=== PATIENT | female | born 1935 | race Caucasian/White ===

== ENCOUNTER 2020-09-04 06:15 | Inpatient (IN) ==
[2020-09-04] MEDS ORDERED: 0.9 % SODIUM CHLORIDE 1,000 ML IV ONE (07:07)
[2020-09-04] MEDS ORDERED: cefTRIAXone 1 GM VIAL IV ONE (07:42)
[2020-09-04 08:03] LABS: Hematocrit 42.4 % (36.0-48.0); Hemoglobin 13.5 g/dL (12.0-15.0); Mean Cell Volume 93.8 fL (80.0-100.0); Mean Corpuscular HGB Conc 31.8 g/dL (31.0-36.0); Mean Platelet Volume 9.5 fL (7.4-10.4); Platelet Count 191 K/mcL (140-440); RBC 4.52 M/mcL (4.00-5.20); Red Cell Distribution Width 12.4 % (11.5-14.5); WBC 1.9 K/mcL (4.5-11.0)
[2020-09-04 08:27] LABS: ALT/SGPT 6 U/L (<40); AST/SGOT 14 U/L (<32); Albumin 3.9 gm/dL (3.2-5.2); Albumin/Globulin Ratio 1.2 (1.0-2.3); Alkaline Phosphatase 105 U/L (39-117); Bilirubin,Total 0.6 mg/dL (0.1-1.0); Blood Urea Nitrogen 22 mg/dL (8-23); Calcium 9.9 mg/dL (8.6-10.4); Carbon Dioxide 17 mmol/L (22-30); Chloride 98 mmol/L (96-108); Globulin 3.2 gm/dL (2.2-3.7); Glomerular Filtration Rate 38; Glucose 208 mg/dL (70-105)
[2020-09-04] MEDS ORDERED: SODIUM CHLORIDE IV ONE (09:13)
[2020-09-04] MEDS ORDERED: ONDANSETRON 4 MG/2 ML VIAL IV PRN ×2 (09:19→11:35)
--- NOTE | 2020-09-04 09:21 | Emergency Department Note ---
Abdominal Pain HPI General Chief Complaint: Flank Pain Stated Complaint: right flank pain and abd. Time Seen by Provider: 09/04/20 06:42 Source: patient and EMS Mode of arrival: EMS History of Present Illness HPI Narrative: Narrative: Presents to room T2 via EMS for evaluation of abdominal discomfort and right-sided flank pain. Symptoms started approximately 2 days ago. The patient has generalized malaise with associated right-sided ab dominal and flank pain. The symptoms are constant. There is some nausea. No vomiting or hematemesis reported. No change in bowel habits. No dysuria. The patient was noted to have a low-grade fever and shaking chills this morning prior to arrival. 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 Her son is at the bedside and provides additional history. He is also her caregiver. Related Data Home Medications Medication Instructions Recorded Confirmed acetaminophen 500 mg tablet 1,000 mg PO Q6H PRN 04/04/15 09/04/20 [id number] 1 tab PO DAILY 09/04/20 09/04/20 Previous Rx's Medication Instructions Recorded levetiracetam 500 mg tablet 500 mg PO .COMPLEX #225 tab 01/01/20 citalopram 40 mg tablet 40 mg PO QDAY #90 tab 08/15/20 oxybutynin chloride 10 mg 10 mg PO QDAY #90 tab 08/15/20 tablet,extended release 24 hr simvastatin 10 mg tablet 10 mg PO QPM #90 tab 08/15/20 Allergies Allergy/AdvReac Type Severity Reaction Status Date / Time phenytoin Allergy Unknown Unknown Verified 07/19/19 16:19 Review of Systems ROS ROS Narrative: Narrative: All systems ED: reviewed and negative except as stated. PFSH Narrative Patient History Narrative: Narrative: Medical/Surgical/Family History All Active Problems (Updated 09/04/20 @ 09:47 by Antonino Palacios MD) Abdominal pain (Acute) Acute pyelonephritis (Acute) Septic shock (Acute) Medicare annual wellness visit, initial (Acute) OAB (overactive bladder) (Chronic) Dietary vitamin B12 deficiency anemia (Chronic) Abnormal mammogram (Chronic) Irregular heart rhythm (Chronic) Thrombocytopenia (Chronic) Stroke (Chronic) Shoulder pain (Chronic) Seizure disorder (Chronic) Macrocytosis (Chronic 10/23/13) Lymphadenopathy (Chronic 10/30/12) Lung nodule (Chronic 03/11/14) Kidney stones (Chronic) Hypertension, essential (Chronic) Hyperlipidemia (Chronic 10/23/13) Heartburn (Chronic) Fatigue (Chronic) Depressive disorder (Chronic) Coronary atherosclerosis (Chronic) Cerebrovascular accident (Chronic) Arthritis (Chronic) Acidosis (Chronic 03/11/14) Medical History Abnormal mammogram Discussed multiple times with the patient, she does not want to persue this further, she and her daughter are aware of risk of progressing to malignancy. Acidosis (03/11/14) D lactic acidisos? trial of metronidazole Ankle injury Arthritis Cerebrovascular accident on asa, wc bound, rt side weakness. Contact with asbestos Coronary atherosclerosis Delirium, subacute (10/30/12) Depressive disorder Dietary vitamin B12 deficiency anemia elevated mcv, low normal b12, elevated homocystine, treat with oral high dose of b12, pyridoxine and folic acid. Fatigue Heartburn Hypercalcemia (10/23/12) Hyperlipidemia (10/23/13) on fenofibrate 54, simvasatin 10 and fish oil Hypertension, essential Hypomagnesemia Irregular heart rhythm get holter, got the appointment mixed up, rescheduled, asymptomatic. Kidney stones Lung nodule (03/11/14) Lymphadenopathy (10/30/12) Macrocytosis (10/23/13) Medicare annual wellness visit, initial OAB (overactive bladder) Renal failure (10/23/12) Seizure disorder Sepsis Shoulder pain Stroke 2006-on asa 81 on statin, left side weakness, 2/5 power on the left side Thrombocytopenia Urinary retention Urinary tract infection Weight loss (02/26/14) due to depression? Surgical History History of hip surgery -1989/-1989 Hip replacement x 2 Family History Mother Malignant neoplasm of breast Diabetes mellitus Family history of arthritis Disorder of thyroid Father Cardiac disease Acute myocardial infarction Daughter Migraine Social History Smoking Status: Never smoker Alcohol Intake Frequency: does not drink Substance Use: does not use Exam Narrative Narrative: Narrative: General General appearance: Present alert and in no apparent distress Head Head: Present atraumatic, normocephalic and normal inspection Eye Eye: Present normal appearance and EOMI; Absent conjunctival injection ENT ENT: Present normal exam and mucous membranes moist Neck Neck: Present normal inspection and trachea midline Respiratory Respiratory: Present normal lung sounds bilaterally; Absent respiratory distress Cardiovascular Cardiovascular: Present regular rate, normal rhythm and normal heart sounds Adbominal Abdominal: Present soft and tenderness (Moderate diffuse tenderness to palpation without rebound or guarding. No focal areas of tenderness.); Absent distention, guarding and rebound Extremities Extremities: Present normal inspection; Absent tenderness Back Back: Present normal inspection; Absent tenderness Neurological Neurological: Present alert, oriented X3 and CN II-XII intact; Absent motor sensory deficit Psychiatric Psychiatric: Present normal affect and normal mood Skin Skin: Present warm (WNL) and dry; Absent rash Course Vital Signs Vital signs: Vital Signs Temperature 98.2 F 09/04/20 06:16 Pulse Rate 108 H 09/04/20 06:16 Respiratory Rate 22 09/04/20 06:16 Blood Pressure 167/86 09/04/20 06:16 Pulse Oximetry (%) 88 L 09/04/20 06:16 Temperature 98.2 F 09/04/20 06:16 Pulse Rate 111 H 09/04/20 06:31 Respiratory Rate 31 H 09/04/20 08:31 Blood Pressure 131/65 09/04/20 08:31 Pulse Oximetry (%) 92 09/04/20 06:31 Procedures Other Procedure: CVP line placement Indication vascular access in the context of septic shock Anesthesia 1% lidocaine 5 mL injected locally Procedure Site was prepped with Betadine. Using Seldinger technique 8.5 Ghanaian quadruple lumen CVP line was placed using the supraclavicular approach to the right subclavian vein. First stick without complication. All 4 lines flush and withdrawal without difficulty. Antiinfection disc was placed. Line was sutured into place. Cover dressing applied. Post procedural chest x-ray confirms line placement. There was noted to be a mild amount of bleeding from the site which was controlled with pressure dressing. MDM MDM Narrative Medical decision making narrative: Narrative: Lab Data Lab results reviewed: Yes I reviewed the patient's lab results. Result diagrams: 09/04/20 07:19 09/04/20 07:19 Labs: Lab Results 09/04/20 09/04/20 09/04/20 Range/Units 07:19 07:19 07:32 WBC 1.9 L (4.5-11.0) K/mcL RBC 4.52 (4.00-5.20) M/mcL Hgb 13.5 (12.0-15.0) g/dL Hct 42.4 (36.0-48.0) % MCV 93.8 (80.0-100.0) fL MCH 29.9 (26.0-34.0) pg MCHC 31.8 (31.0-36.0) g/dL RDW 12.4 (11.5-14.5) % Plt Count 191 (140-440) K/mcL MPV 9.5 (7.4-10.4) fL Seg Neutrophils % 68 (38-78) % Band Neutrophils % 20 H (0-10) % Lymphocytes % 12 L (15-49) % Platelet Estimate Normal (Normal) RBC Morphology Normal (Normal) VBG Lactic Acid 6.7 H* (0.5-2.0) mmol/L Sodium 139 (133-145) mmol/L Potassium 3.1 L (3.3-5.1) mmol/L Chloride 98 (96-108) mmol/L Carbon Dioxide 17 L (22-30) mmol/L Anion Gap 24.0 H (8.0-16.0) BUN 22 (8-23) mg/dL Creatinine 1.3 H (0.6-1.1) mg/dL GFR Calculation 38 Glucose 208 H (70-105) mg/dL Calcium 9.9 (8.6-10.4) mg/dL Total Bilirubin 0.6 (0.1-1.0) mg/dL AST 14 (<32) U/L ALT 6 (<40) U/L Alkaline Phosphatase 105 (39-117) U/L Total Protein 7.1 (5.9-8.4) gm/dL Albumin 3.9 (3.2-5.2) gm/dL Globulin 3.2 (2.2-3.7) gm/dL Albumin/Globulin Ratio 1.2 (1.0-2.3) Radiology Data Radiology results reviewed: Yes I reviewed the patient's radiology results. Rhythm Strip Data Rhythm Strip Rate: 110 Interpretation: sinus tachycardia Pulse Oximetry Data Pulse Ox %: 92 Interpretation: 2 L, hypoxia correct CC TIME Critical Care Time Critical Care Time: Yes Total Critical Care Time: 30 Attestation: Approximately 30 minutes of critical care time was used in order to assess and manage the high probability of imminent or life threatening deterioration which required my highest level of preparedness and interventions with frequent patient assessments. This time is excluding time spent on separately billable procedures. The patient presents for evaluation of abdominal discomfort with right-sided flank pain and shaking chills. The patient does have a white blood cell count of 1.9. In addition the patient presented with tachypnea and tachycardia, this is consistent with SIRS. The patient had blood cultures and was given IV antibiotics on arrival. The patient's initial lactic acid is 6.7 which is consistent with septic shock. The patient was treated with 30 mL/kg bolus. CT scan of the chest abdomen pelvis was obtained. CT scan confirms a 4.4 mm mid ureteral stone in the right collecting system with changes suggestive of concomitant pyelonephritis. I did discuss the case with Dr. Dumont the on-call urologist. He is agreed to consult. He is requested that I admit the patient to the hospitalist. I did discuss the case as well with Dr. Cosme. The patient will require admission At the initial time of disposition patient had only a 20-gauge IV which was tenuous. It was decided that the patient would benefit from a CVP line placement. Please see the procedure note for full details. Patient tolerated the procedure well. Discharge Plan Patient/Caregiver Discharge Instructions Pt seen by ARCHITECTURAL DRAFTSMAN/PA only: No Clinical Impression: Abdominal pain, Acute pyelonephritis, Septic shock Patient Disposition: Xfer As Inpt ([facility]) Condition: Undetermined Follow up with: Amee Wiggins DO [Primary Care Provider] - Prescriptions: No Action levetiracetam 500 mg tablet 500 mg PO .COMPLEX Qty: 225 RF: 2 simvastatin 10 mg tablet 10 mg PO QPM Qty: 90 RF: 0 oxybutynin chloride [Ditropan XL] 10 mg tablet extended release 24hr 10 mg PO QDAY Qty: 90 RF: 0 citalopram 40 mg tablet 40 mg PO QDAY Qty: 90 RF: 0 acetaminophen 500 mg tablet 1,000 mg PO Q6H PRN (Reason: Pain) RF: 0 [id number] 333-133-5 mg Tablet 1 tab PO DAILY RF: 0
--- NOTE | 2020-09-04 09:35 | Cat Scan Report ---
CLINICAL INFORMATION: Fever and abdominal pain. Right flank pain COMPARISON: Chest CT 03/07/2014. TECHNIQUE: Enteric contrast was utilized. 80 cc of Isovue-370 were injected intravenously, and 50 seconds later 2.5 mm helical slices were obtained from the lung apices through the subtrochanteric regions of the femurs. Following reconstruction, 2.5 mm sagittal, coronal and axial reformatted images were processed and reviewed at multiple windows and levels. 7 mm MIP reconstructions were obtained through the lungs to optimize nodule detection.The exam was performed using radiation dose optimization techniques including, but not limited to, automated exposure control, adjustment of the mA and/or kV according to patient size and use of iterative reconstruction technique. FINDINGS: Pulmonary parenchymal windows show subsegmental atelectasis in both posterior upper and lower lobes. No carol infiltrates or effusions. Scattered bilateral pleural calcification is suggestive of asbestos exposure. Mediastinal windows show the heart is moderately enlarged with heavy calcific plaque in the coronary arteries. The pulmonary arteries are opacified and normal in caliber - no evidence of embolus. Thoracic aorta shows diffuse intimal thickening but is normal diameter. There is no adenopathy in the mediastinal hilar or axillary regions. The esophagus is grossly normal. There is moderate calcification seen within the tracheobronchial martinez. Mild narrowing of the intrathoracic trachea and also the proximal bronchi suggesting tracheomalacia and bronchomalacia. Thyroid is grossly normal Abdominal images show mild fatty change within the liver. There is a 17 mm simple cyst in the posterior segment of the right hepatic lobe, but no significant focal hepatic lesions. Multiple stones layer dependently within the gallbladder. Gallbladder and bile ducts are, otherwise, normal: CBD is 5 mm. The pancreas is atrophic. There is moderate dilatation of Santorini pancreatic duct in the distal body and tail: Duct diameter is 5 mm. No evidence of obstructing mass or stone in the distal pancreatic duct. Both adrenal glands spleen are unremarkable. A 4.4 mm stone in the proximal right ureter results in moderate right hydronephrosis. Transitional epithelial thickening in the right upper collecting system is compatible with associated pyelonephritis. Nonobstructing stones present within the right kidney: three within mid calyces ranging up to 4 mm. There are two and inferior calyx both less than 2 mm. On the left side, a 12 mm nonobstructing stone is seen superior calyx, a 2 mm nonobstructing stone inferior calyx and 5 mm stone within a mid calyx. Scattered parenchymal scarring present in the left kidney. Pelvic images show slightly retroverted uterus with a 2 cm submucosal fibroid in the uterine fundus. Neither ovary is identified. Urinary bladder grossly normal but obscured by beam hardening artifact from hip prostheses. Multiple sigmoid diverticuli appreciated. The remaining colon, appendix region, small bowel and stomach are grossly normal. A small amount of fluid in the right anterior parapsoas likely related to extravasation from hydronephrosis. Bone windows show grade 1 L4-5 spondylolisthesis due to degenerative facet disease. No other osseous abnormality. IMPRESSION: 1. 4.4 mm stone in the proximal right ureter resulting in moderate right hydronephrosis. Transitional epithelial thickening the upper collecting system suggests associated pyelonephritis. Nonobstructing stones are present in the calyces of both kidneys as described. The largest is 12 mm superior calyx left kidney. 2. Cholelithiasis. Gallbladder and bile ducts are, otherwise, normal 3. Pancreatic atrophy. Moderate dilatation of Santorini pancreatic duct in the distal body and tail. This could indicate IPMN or, less likely, a small mass obstructing the distal pancreatic duct which is not identified. If this requires further evaluation, suggest abdominal MRI MRCP. Patient advanced age acknowledged: this may not be clinically indicated. 4. Subsegmental atelectasis both posterior lower lobes. AP narrowing of the intrathoracic trachea and proximal bronchi suggesting tracheomalacia and bronchomalacia. Moderate calcification seen within the airway martinez 5. Mild cardiomegaly with heavy calcific plaque in the coronary arteries. 6. 20 mm submucosal fibroid uterine fundus. Interpreted and Authenticated by: Dean Barraza 09/04/20
[2020-09-04 09:38] LABS: Band Neutrophils % 20 % (0-10); Lymphocytes % 12 % (15-49); Platelet Estimate NORMAL (Normal); RBC Morphology NORMAL (Normal); Segmented Neutrophils % 68 % (38-78)
[2020-09-04] MEDS ORDERED: PIPERACILLIN SODIUM/TAZOBACTAM 4.5 GM in DEXTROSE 5% IN WATER 50 ML IV ONE (09:47)
[2020-09-04] MEDS ORDERED: POTASSIUM CHLORIDE 20 MEQ TABLET PO ONE (09:48)
--- NOTE | 2020-09-04 10:40 | Internal Med History&Physical ---
HPI History of Present Illness Patient information: Note initiated : 09/04/20 at 10:29 am Service Date, if different from initiated Date: [] Patient: Amee Nazario 84 y/o F admitted on for Rt Sided Flank/Abd Pain. Chief Complaint: History of present illness: Ms. Nazario is a 84 year old F with a history of seizure disorder/HLD/CVA who presented to the ER with increasing abdominal pain/malaise fever weakness. Symptoms accompanied with shaking chills and sweats. She is accompanied to the ER by her son Shamar. Most of the history is obtained from patient's son. Patient appears intermittently confused and lethargic. Initial work-up in the ER was consistent with septic shock with white count of 1.9, lactic acid 6.7, mental status change and acute renal failure with a creatinine of 1.3. Imaging was consistent with 4.4 mm right mid ureteral stone with obstructive uropathy and hydronephrosis. Case was discussed with urology. Patient was started on antibiotics after cultures were drawn along with crystalloids and vasopressors. Central line was secured. Subsequently hospital service was consulted At the time of my evaluation patient is mottled, confused, systolics 110 on pressors. Appears very sick. Based on [place] 2 score patient presents a very high mortality risk. She is currently DNR as per directive. Scheduled for emergentr ureteric stone removal/stent placement. Patient endorses to shaking chills, fever, abdominal pain but could not provide a detailed history. Review of systems A minimal review of system could be obtained due to patient mental status PFSH PFS All Active Problems (Updated 09/04/20 @ 09:47 by Antonino Palacios MD) Abdominal pain (Acute) Acute pyelonephritis (Acute) Septic shock (Acute) Medicare annual wellness visit, initial (Acute) OAB (overactive bladder) (Chronic) Dietary vitamin B12 deficiency anemia (Chronic) Abnormal mammogram (Chronic) Irregular heart rhythm (Chronic) Thrombocytopenia (Chronic) Stroke (Chronic) Shoulder pain (Chronic) Seizure disorder (Chronic) Macrocytosis (Chronic 10/23/13) Lymphadenopathy (Chronic 10/30/12) Lung nodule (Chronic 03/11/14) Kidney stones (Chronic) Hypertension, essential (Chronic) Hyperlipidemia (Chronic 10/23/13) Heartburn (Chronic) Fatigue (Chronic) Depressive disorder (Chronic) Coronary atherosclerosis (Chronic) Cerebrovascular accident (Chronic) Arthritis (Chronic) Acidosis (Chronic 03/11/14) Medical History Abnormal mammogram Discussed multiple times with the patient, she does not want to persue this further, she and her daughter are aware of risk of progressing to malignancy. Acidosis (03/11/14) D lactic acidisos? trial of metronidazole Ankle injury Arthritis Cerebrovascular accident on asa, wc bound, rt side weakness. Contact with asbestos Coronary atherosclerosis Delirium, subacute (10/30/12) Depressive disorder Dietary vitamin B12 deficiency anemia elevated mcv, low normal b12, elevated homocystine, treat with oral high dose of b12, pyridoxine and folic acid. Fatigue Heartburn Hypercalcemia (10/23/12) Hyperlipidemia (10/23/13) on fenofibrate 54, simvasatin 10 and fish oil Hypertension, essential Hypomagnesemia Irregular heart rhythm get holter, got the appointment mixed up, rescheduled, asymptomatic. Kidney stones Lung nodule (03/11/14) Lymphadenopathy (10/30/12) Macrocytosis (10/23/13) Medicare annual wellness visit, initial OAB (overactive bladder) Renal failure (10/23/12) Seizure disorder Sepsis Shoulder pain Stroke 2006-on asa 81 on statin, left side weakness, 2/5 power on the left side Thrombocytopenia Urinary retention Urinary tract infection Weight loss (02/26/14) due to depression? Surgical History History of hip surgery -1989 Hip replacement x 2 Family History Mother Malignant neoplasm of breast Diabetes mellitus Family history of arthritis Disorder of thyroid Father Cardiac disease Acute myocardial infarction Daughter Migraine Social History (Updated 07/28/19 @ 18:40 by Amee Wiggins DO) marital status: other: 4 Children alcohol intake frequency: does not drink substance use type: does not use MEDS/ALLERGIES Home Medications and Allergies Home Medications Medication Instructions Recorded Confirmed Type acetaminophen 500 mg tablet 1,000 mg PO Q6H PRN 04/04/15 09/04/20 History levetiracetam 500 mg tablet 500 mg PO .COMPLEX #225 tab 01/01/20 09/04/20 Rx citalopram 40 mg tablet 40 mg PO QDAY #90 tab 08/15/20 09/04/20 Rx oxybutynin chloride 10 mg 10 mg PO QDAY #90 tab 08/15/20 09/04/20 Rx tablet,extended release 24 hr simvastatin 10 mg tablet 10 mg PO QPM #90 tab 08/15/20 09/04/20 Rx [id number] 1 tab PO DAILY 09/04/20 09/04/20 History Allergies Allergy/AdvReac Type Severity Reaction Status Date / Time phenytoin Allergy Unknown Unknown Verified 07/19/19 16:19 EXAM Constitutional Vitals: Temp Pulse Resp BP Pulse Ox 98.2 F 111 H 31 H 131/65 92 09/04/20 06:16 09/04/20 06:31 09/04/20 08:31 09/04/20 08:31 09/04/20 06:31 Head normocephalic Oral cavity moist No ear or nose discharge Eye no subconjunctival pallor, movement symmetrical S1-S2 tachycardia Labored breathing on 2 L oxygen Tender abdomen right flank Lower extremity no cyanosis clubbing or joint swelling Skin no suspicious lesion Psych anxious but no hallucination Neuro normal higher function on limited neuro exam DATA Data Completed and Pending Labs: Labs from last 24 hours 09/04/20 09/04/20 09/04/20 07:32 07:19 07:19 WBC 1.9 L RBC 4.52 Hgb 13.5 Hct 42.4 MCV 93.8 MCH 29.9 MCHC 31.8 RDW 12.4 Plt Count 191 MPV 9.5 Seg Neutrophils % 68 Band Neutrophils % 20 H Lymphocytes % 12 L Platelet Estimate Normal RBC Morphology Normal VBG Lactic Acid 6.7 H* Sodium 139 Potassium 3.1 L Chloride 98 Carbon Dioxide 17 L Anion Gap 24.0 H BUN 22 Creatinine 1.3 H GFR Calculation 38 Glucose 208 H Calcium 9.9 Total Bilirubin 0.6 AST 14 ALT 6 Alkaline Phosphatase 105 Total Protein 7.1 Albumin 3.9 Globulin 3.2 Albumin/Globulin Ratio 1.2 A/P Narrative A/P Narrative: * Right obstructive uropathy with pyonephrosis, urology consulted for emergent stent placement, broad antibiotic coverage * Septic shock secondary to above. Continue broad antibiotic coverage/crystalloid/pressors. Patient critically ill * Acute hypoxic respiratory failure secondary to septic shock/endorgan dysfunction-continue supportive treatment/oxygen * Acute pyelonephritis-on antibiotic coverage * Hypokalemia-replace IV * Acute kidney injury-sepsis endorgan dysfunction, avoid nephrotoxins, crystalloids and monitor renal function * History of seizure disorder continue Keppra * HLD * Anxiety disorder * Prophylax Heparin Plan * ICU admission * Septic shock management per guidelines * Emergent urology consult for ureteric decompression * Vasopressors * monitor renal function * High risk mortality Time Spent With Patient Time: Time spent on Physical in excess of 70 minutes, additional 35 minutes critical care time spent on management of hypoxia spray failure/septic shock/hemodynamic support in ICU
[2020-09-04] MEDS ORDERED: ACETAMINOPHEN 325 MG TABLET PO ONE (10:52)
--- NOTE | 2020-09-04 10:52 | XRay Report ---
CLINICAL INFORMATION: post-central line placement COMPARISON: None. FINDINGS: Right-sided central line tip overlies the SVC right atrial junction. There is no pneumothorax or other combination line placement. The heart is mildly enlarged. There is lateral bowing of the azygoesophageal line suggesting esophageal dilatation. The remaining mediastinum and pulmonary vessels are normal. Scattered tiny calcified granulomas seen in both lungs, but no infiltrates or effusions. IMPRESSION: Central line in satisfactory position. No pneumothorax or other combination line placement Suspect esophageal dilatation. Please correlate with symptoms of dysphagia Interpreted and Authenticated by: Dean Barraza 09/04/20
[2020-09-04 11:25] LABS: Appearance,Urine CLOUDY (Clear); Bilirubin,Urine Negative (Negative); Color,Urine YELLOW; Culture Indicated,Urine yes; Glucose,Urine (UA) Negative (Negative); Ketones,Urine Negative (Negative); Leukocyte Esterase,Urine 500 /ug (Negative); Mucus,Urine FEW /hpf; Nitrate,Urine Negative (Negative); Protein,Urine 100 mg/dL (Negative); Specific Gravity,Urine 1.018 (1.000-1.035); Urine Blood 0.03 mg/dL (Negative); Urine RBC 73 /hpf (0-3); Urine Squamous Epithelial Cell < 1 /hpf (0-4); Urine Transitional Epi Cells < 1 /hpf (0-2); Urine WBC > 182 /hpf (0-4); Urobilinogen,Urine Negative
[2020-09-04] MEDS ORDERED: 0.9 % SODIUM CHLORIDE 250 ML IV SCH (11:35)
[2020-09-04] MEDS ORDERED: ACETAMINOPHEN 650 MG/65 ML BAG IV PRN (11:35)
[2020-09-04] MEDS ORDERED: POTASSIUM CHLORIDE 40 MEQ in DEXTROSE 5% IN WATER 500 ML IV PRN (11:35)
[2020-09-04] MEDS ORDERED: levETIRAcetam 500 MG TABLET PO SCH ×2 (11:35→21:00)
[2020-09-04] MEDS ORDERED: PIPERACILLIN SODIUM/TAZOBACTAM 3.375 GM in DEXTROSE 5% IN WATER 50 ML IV SCH (11:35)
[2020-09-04] MEDS ORDERED: ACETAMINOPHEN 325 MG TABLET PO PRN (11:35)
[2020-09-04] MEDS ORDERED: 0.9 % SODIUM CHLORIDE 1,000 ML IV SCH ×2 (11:35)
[2020-09-04] MEDS ORDERED: POLYETHYLENE GLYCOL 3350 17 GM PACKET PO PRN (11:35)
[2020-09-04] MEDS ORDERED: HYDROmorphone 0.5 MG/0.5 ML SYRINGE IV PRN (11:35)
[2020-09-04] MEDS ORDERED: ONDANSETRON 4 MG ODT TABLET SL PRN (11:35)
[2020-09-04] MEDS ORDERED: VANCOMYCIN PER PHARMACY IV SCH (11:35)
[2020-09-04] MEDS ORDERED: POTASSIUM CHLORIDE 20 MEQ PACKET PO PRN (11:35)
[2020-09-04] MEDS ORDERED: MAGNESIUM SULFATE 2 GM/50 ML BAG IV PRN (11:35)
[2020-09-04] MEDS ORDERED: BISACODYL 10 MG SUPP.RECT PR PRN (11:35)
[2020-09-04] MEDS ORDERED: NOREPINEPHRINE BITARTRATE 8 MG in 0.9 % SODIUM CHLORIDE 242 ML IV SCH ×2 (12:00→13:00)
[2020-09-04] MEDS ORDERED: VANCOMYCIN 1,250 MG in 0.9 % SODIUM CHLORIDE 500 ML IV SCH (12:00)
[2020-09-04] MEDS ORDERED: NOREPINEPHRINE BITARTRATE 8 MG in 0.9 % SODIUM CHLORIDE 242 ML IV PRN (12:15)
--- NOTE | 2020-09-04 12:17 | EKG ---
[facility] Test Date: 2020-09-04 Pat Name: Amee Nazario Department: ED Room: Gender: Female It Program Auditor: : [id number] Requested By: Antonino Palacios Order Number: [id number] Reading MD: Taiwo Morrell M.D. Measurements Intervals [place] Rate: 100 P: 112 UT: 78 QRS: -7 QRSD: 100 T: 60 QT: 439 QTc: 567 Interpretive Statements Sinus tachycardia Abnormal R-wave progression, early transition Nonspecific repol abnormality, lateral leads ST elevation, consider inferior injury Prolonged QT interval Since previous ECG of 10-23-2012, early r-wave transition, prolonged QTc Electronically Signed On 09-04-2020 12:17:03 PDT by Taiwo Morrell M.D. /store/[id number]
[2020-09-04 12:30] LABS: POC INR 1.3 (0.8-1.2); POC Pro Time 15.9 sec (11.9-14.5)
[2020-09-04] MEDS ORDERED: ePHEDrine 50 MG/ML AMPUL IV ONE (13:00)
[2020-09-04] MEDS ORDERED: MIDAZOLAM 5 MG/5 ML VIAL ONE (13:00)
[2020-09-04] MEDS ORDERED: SUCCINYLCHOLINE 20 MG/ML ML IV ONE (13:00)
[2020-09-04] MEDS ORDERED: PHENYLEPHRINE 10 MG/ML VIAL ONE (13:00)
[2020-09-04] MEDS ORDERED: fentaNYL 100 MCG/2 ML VIAL IV ONE (13:00)
[2020-09-04] MEDS ORDERED: PROPOFOL 200 MG/20 ML VIAL IV ONE (13:00)
[2020-09-04] MEDS ORDERED: ROCURONIUM 10 MG/ML ML IV ONE (13:00)
[2020-09-04] MEDS ORDERED: DEXAMETHASONE 10 MG/ML VIAL ONE (13:00)
[2020-09-04] MEDS ORDERED: KETAMINE 100 MG/ML ML ONE (13:00)
[2020-09-04] MEDS ORDERED: diphenhydrAMINE 50 MG/ML VIAL ONE (13:00)
[2020-09-04] MEDS ORDERED: LIDOCAINE HCL/PF 100 MG/5 ML SYRINGE IV ONE (13:00)
[2020-09-04] MEDS ORDERED: methylPREDNISolone SOD SUCC 125 MG/2 ML VIAL ONE (13:00)
[2020-09-04] MEDS ORDERED: ONDANSETRON 4 MG/2 ML VIAL ONE (13:00)
[2020-09-04] MEDS ORDERED: 0.9 % SODIUM CHLORIDE 10 ML SYRINGE IV SCH (14:00)
[2020-09-04] MEDS ORDERED: IOVERSOL 20 ML VIAL IV ONE (14:12)
--- NOTE | 2020-09-04 14:23 | Transfer Summary ---
Discharge Provider Provider Patient information: Note initiated : 09/04/20 at 2:18 pm Service Date, if different from initiated Date: [] Patient: Amee Nazario 84 y/o F admitted on 09/04/20 for Rt Sided Flank/Abd Pain. Transfer diagnosis * Right obstructive uropathy with pyonephrosis/pyelonephritis, unsuccessful stenting/stone extraction. Urology recommends Perc nephrostomy. Transfer to tertiary center underway * Septic shock secondary to above. On broad antibiotic co verage/crystalloid/vaso-pressors. Patient critically ill * Acute hypoxic respiratory failure secondary to septic shock/endorgan dysfunction/aspiration episode during procedure-now on mechanical ventilation PEEP 5/FiO2 40%, tidal volume 400 rate 14 * Hypokalemia-IV replacement * Acute kidney injury-sepsis endorgan dysfunction, creatinine 1.3 * History of seizure disorder continue Keppra * HLD * Anxiety disorder Brief hospital course History of present illness: Ms. Nazario is a 84 year old F with a history of seizure disorder/HLD/CVA who presented to the ER with increasing abdominal pain/malaise fever weakness. Symptoms accompanied with shaking chills and sweats. She is accompanied to the ER by her son Shamar. Most of the history is obtained from patient's son. Patient appears intermittently confused and lethargic. Initial work-up in the ER was consistent with septic shock with white count of 1.9, lactic acid 6.7, mental status change and acute renal failure with a creatinine of 1.3. Imaging was consistent with 4.4 mm right mid ureteral stone with obstructive uropathy and hydronephrosis. Case was discussed with urology. Patient was started on antibiotics after cultures were drawn along with crystalloids and vasopressors. Central line was secured. Subsequently hospital service was consulted At the time of my evaluation patient is mottled, confused, systolics 110 on pressors. Appears very sick. Based on [place] 2 score patient presents a very high mortality risk. She is currently DNR as per directive. Scheduled for emergentr ureteric stone removal/stent placement. Patient endorses to shaking chills, fever, abdominal pain but could not provide a detailed history. 09/04-patient was intubated during surgery following an aspiration episode. U reteral stenting/stone extraction was unsuccessful. Received phone call from urology regarding initiation of transfer to tertiary [place] for percutaneous nephrostomy tube placement. Also bladder perforation was noted during cystoscopy as per urology. Patient currently on Versed/fentanyl on mechanical ventilation PEEP 5/FiO2 40%/tidal volume 400/rate 14. On vasopressors/crystalloids. Perdue's catheter in place. Central matt functioning. Await callback from tertiary center for emergent transfer. Case discussed with patient's daughter and explained the need for transfer tertiary center for uppercase nephrostomy tube placement/bladder perforation management along with need for intensive care treatment for septic shock. Case discussed with dr Jordan [facility] fire production operator. Accepted for further management. Transfer via air ambulance. Patient critically ill currently on mechanical ventilation. additiona critical care time time spent on management/transfer coordination in excess of 65 minutes Date of admission: 09/04/20 11:25 Discharge date: 09/04/20 Primary care physician: Amee Wiggins DO Consults: 09/04/20 Consult to Physician [CONS] Stat Comment: Consulting Provider: Chicho Thompson Reason For Exam: Physician to Consult Discharge Meds Discharge Medications Home Medications acetaminophen 500 mg tablet 1,000 mg PO Q6H PRN 04/04/15 [History Confirmed 09/04/20 Last Taken Unknown] levetiracetam 500 mg tablet 500 mg PO .COMPLEX #225 tab 01/01/20 [Rx Confirmed 09/04/20 Last Taken Unknown] citalopram 40 mg tablet 40 mg PO QDAY #90 tab 08/15/20 [Rx Confirmed 09/04/20 Last Taken Unknown] oxybutynin chloride 10 mg tablet,extended release 24 hr 10 mg PO QDAY #90 tab 08/15/20 [Rx Confirmed 09/04/20 Last Taken Unknown] simvastatin 10 mg tablet 10 mg PO QPM #90 tab 08/15/20 [Rx Confirmed 09/04/20 Last Taken Unknown] nvsxlxe-[id number] 1 tab PO DAILY 09/04/20 [History Confirmed 09/04/20 Last Taken Unknown] COURSE Hospital Course Hospital course: . Discharge diagnosis: Septic shock/obstructive uropathy Time Spent with Patient Time attestation: Total time spent providing and/or coordinating discharge se rvices: EXAM Constitutional Vitals: Temp Pulse Resp BP Pulse Ox 103.5 F H 100 H 29 H 114/69 96 09/04/20 12:31 09/04/20 12:31 09/04/20 12:31 09/04/20 12:26 09/04/20 12:31 Discharge Data Data Completed and Pending Labs on day of discharge: Labs from last 24 hours 09/04/20 09/04/20 09/04/20 12:20 12:18 10:16 WBC RBC Hgb Hct MCV MCH MCHC RDW Plt Count MPV Seg Neutrophils % Band Neutrophils % Lymphocytes % Platelet Estimate RBC Morphology POC PT 15.9 H POC INR 1.3 H VBG Lactic Acid 5.7 H* Sodium Potassium Chloride Carbon Dioxide Anion Gap BUN Creatinine GFR Calculation Glucose Calcium Total Bilirubin AST ALT Alkaline Phosphatase Total Protein Albumin Globulin Albumin/Globulin Ratio Urine Color Yellow Urine Appearance Cloudy A Urine pH 7.0 Ur Specific [place] 1.018 Urine Protein 100 A Urine Glucose (UA) Negative Urine Ketones Negative Urine Occult Blood 0.03 Urine Nitrate Negative Urine Bilirubin Negative Urine Urobilinogen Negative Ur Leukocyte Esterase 500 A Urine RBC 73 H Urine WBC > 182 H Ur Squamous Epith Cells < 1 Ur Transition Epith Cell < 1 Urine Bacteria None Urine Mucus Few A Ur Culture Indicated? yes 09/04/20 09/04/20 09/04/20 07:32 07:19 07:19 WBC 1.9 L RBC 4.52 Hgb 13.5 Hct 42.4 MCV 93.8 MCH 29.9 MCHC 31.8 RDW 12.4 Plt Count 191 MPV 9.5 Seg Neutrophils % 68 Band Neutrophils % 20 H Lymphocytes % 12 L Platelet Estimate Normal RBC Morphology Normal POC PT POC INR VBG Lactic Acid 6.7 H* Sodium 139 Potassium 3.1 L Chloride 98 Carbon Dioxide 17 L Anion Gap 24.0 H BUN 22 Creatinine 1.3 H GFR Calculation 38 Glucose 208 H Calcium 9.9 Total Bilirubin 0.6 AST 14 ALT 6 Alkaline Phosphatase 105 Total Protein 7.1 Albumin 3.9 Globulin 3.2 Albumin/Globulin Ratio 1.2 Urine Color Urine Appearance Urine pH Ur Specific [place] Urine Protein Urine Glucose (UA) Urine Ketones Urine Occult Blood Urine Nitrate Urine Bilirubin Urine Urobilinogen Ur Leukocyte Esterase Urine RBC Urine WBC Ur Squamous Epith Cells Ur Transition Epith Cell Urine Bacteria Urine Mucus Ur Culture Indicated? Discharge Plan Patient/Caregiver Discharge Instructions Activity: other Diet: NPO Prescriptions: No Action levetiracetam 500 mg tablet 500 mg PO .COMPLEX Qty: 225 RF: 2 simvastatin 10 mg tablet 10 mg PO QPM Qty: 90 RF: 0 oxybutynin chloride [Ditropan XL] 10 mg tablet extended release 24hr 10 mg PO QDAY Qty: 90 RF: 0 citalopram 40 mg tablet 40 mg PO QDAY Qty: 90 RF: 0 acetaminophen 500 mg tablet 1,000 mg PO Q6H PRN (Reason: Pain) RF: 0 [id number] [id number] mg Tablet 1 tab PO DAILY RF: 0 Follow Up Plan Follow up with: Amee Wiggins DO [Primary Care Provider] - Patient Disposition: [facility] Prognosis: Undetermined Rehab Potential: Serious I certify that the patient requires SNF services: No Overall status at discharge: patient is not back to baseline Discharge Orders: Discharge Order (Routine); Ordered 09/04/20 Ordered By: Chicho Thompson Discharge Comment: [facility] to transport pt to [facility]
[2020-09-04] MEDS ORDERED: HEPARIN/NS 500 ML IV SCH (14:30)
[2020-09-04] MEDS ORDERED: fentaNYL 2,500 MCG in 0.9 % SODIUM CHLORIDE 200 ML IV SCH (14:30)
[2020-09-04] MEDS ORDERED: MIDAZOLAM HCL 50 MG in 0.9 % SODIUM CHLORIDE 90 ML IV SCH (15:00)
--- NOTE | 2020-09-04 15:19 | XRay Report ---
CLINICAL INFORMATION: RIGHT RETROGRADE AND STENT PLACEMENT COMPARISON: Abdomen and pelvic CT 09/04/2020 FINDINGS: Digital images from the OR show moderate right hydronephrosis due to known 4.5 mm obstructing stone at the UPJ. Small amount of extravasation around the proximal ureter seen on the postinjection films with possible catheter perforation. No film submitted demonstrating stent placement. IMPRESSION: Moderate right hydronephrosis due to obstructing stone at UPJ. Interpreted and Authenticated by: Dean Barraza 09/04/20
--- NOTE | 2020-09-04 16:37 | Brief Operative Note ---
Brief Operative Note Date of procedure: 09/04/20 Pre-op diagnosis: Infected right UPJ stone Post-op diagnosis: same Procedure: Cystoscopy with attempted stent placement Grafts/Implants: No Anesthesia: MAC Findings: 5 mm right upper ureteral stone with ureteral perforation either from erosion or from attempted stenting Complications: other Complications Description: Unable to stent Surgeon: Tian Dumont Estimated blood loss (cc): 0 Tourniquet Time (Minutes): 0 Specimens Removed/Pathology: none sent Condition: stable Disposition: ICU
--- NOTE | 2020-09-04 16:46 | Operative Note ---
Operative Note Operative Note: Preop diagnosis--infected right upper ureteral stone Surgeon--Tian Dumont Operation performed--cystoscopy with attempted right stent placement Postop diagnosis--infected right upper ureteral stone with ureteral perforation Date of operation and dictation--09/04/2020 Complications--none Specimen--none Blood loss--none Drain--16 [place] Perdue Indication-- this 84-year-old female began developing right flank pain along with fever and chills and was transported to the emergency room. She was identified as being in sepsis and had an obstructing 5 mm stone just below the UPJ in the right upper ureter. There was significant dilation of the UPJ and the renal pelvis with some blunting of the calyces and consistent with a stone that had been obstructing for some time. There was cloudy urine in the catheter bag. She had been treated with antibiotics in the emergency room and there was a discussion whether to approach this with a stent or percutaneous nephrostomy. Since there is not an interventional radiologist this hospital we elected to proceed with attempted stent. Description--the patient was placed on the operating table in a supine position. A timeout was called at which time we confirmed the patient, procedure, position and presence of antibiotic. She was prepped and draped after standard induction of general anesthesia. A 21 [place] cystoscope was advanced into the bladder under direct vision. The urethra was normal. Bladder neck was normal. Trigone and orifices were normal with cloudy urine coming in small amounts from the right ureteral orifice. A 5 [place] open tip catheter was advanced into the orifice and a retrograde study was done. A large stone was seen impacted in the upper ureter just below the UPJ. The contrast from the previous intravenous study was still in the kidney with blunting of the calyces dilated renal pelvis and dilated UPJ. With the retrograde injection of contrast with the open tip catheter at mid ureter there was already some extravasation of contrast outside the upper ureter just distal to the stone. The open tip catheter was gently advanced up to near the stone. A straight safety tip guidewire was then used to try and either push the stone back up into the kidney or bypass it. Multiple gentle attempts were done but each time the wire was outside of the urinary tract. Attempts using a combination of the open tip catheter and the guidewire were unsuccessful. At that point the guidewire was removed and the open tip catheter was replaced with an angled catheter 5 [place] in size. The 0.035 inch guidewire was advanced senior care up to the open tip angled catheter and again it was gently advanced up to the area of the stone. With rotation of the angled tipped catheter the guidewire was gently advanced in a variety of different directions. None of these attempts were successful and the guidewire would pass through an apparent perforation. Again it was unclear whether this was from erosion of a stone that is been there for some time or whether it was actually created by the manipulation. She was reasonably stable clinically and after an hour of attempting to get something into the renal pelvis the procedure was discontinued. A Perdue catheter was reinserted similar to the one that she arrived with from the emergency room and she was transferred to the ICU in satisfactory condition.
[2020-09-04] MEDS ORDERED: PIPERACILLIN SODIUM/TAZOBACTAM 2.25 GM in DEXTROSE 5% IN WATER 50 ML IV SCH (18:00)
[2020-09-04] MEDS ORDERED: HEPARIN 5,000 UNIT/ML VIAL SQ SCH (21:00)
[2020-09-04] MEDS ORDERED: SENNOSIDES/DOCUSATE SODIUM 1 TAB TABLET PO SCH (21:00)
[2020-09-04] MEDS ORDERED: DOCUSATE SODIUM 100 MG CAPSULE PO SCH (21:00)
[2020-09-04] MEDS ORDERED: CHLORHEXIDINE GLUCONATE 1 ML ORAL.SOL SWABMOUTH SCH (21:00)
[2020-09-04] MEDS ORDERED: MELATONIN 3 MG TABLET PO PRN (21:00)
== END 2020-09-04 16:30 | disposition short-term general hospital (02) | DRG 871 ==
LOC: ED 06:15 → ICU 11:25
PROVIDERS: ADMIT Internal Medicine; ATTEND Internal Medicine